=== PATIENT | male | born 1965 ===

== ENCOUNTER 2017-09-26 09:29 | Emergency (ER) | payer SELFPAY ==
[2017-09-26 09:39] VITALS: RESP 16
--- NOTE | 2017-09-26 10:24 | ED ---
General Adult HPI - General Chief complaint: Eye Problems Stated complaint: [employer] soap in eye Time Seen by Provider: 09/26/17 09:55 Source: patient, RN notes reviewed Mode of arrival: ambulatory Limitations: language barrier - History of Present Illness Initial comments: Patient is a 52-year-old male who presents emergency room today with a chief complaint of blurred vision from the right eye. Patient admits that 2 weeks ago while at work he had soap splashed him in the eye. He states he was seen in [place] where this happened placed on antibiotic drops ofloxacin. He states taking these drops is currently out but states he is experiencing blurred vision on the right eye. Patient states pain at times minimal. Patient denies any other complaints or symptoms. Patient denies any recent fever , chills, shortness of breath, chest pain, back pain, abdominal pain, nausea or vomiting, numbness or tingling, dysuria or hematuria, constipation or diarrhea, headaches, or any other complaints. - Related Data Home Medications Medication Instructions Recorded Confirmed No Known Home Medications [No 09/26/17 09/26/17 Known Home Medications] Allergies Allergy/AdvReac Type Severity Reaction Status Date / Time No Known Allergies Allergy Verified 09/26/17 09:47 Review of Systems ROS Statement: Those systems with pertinent positive or pertinent negative responses have been documented in the HPI. ROS Other: All systems not noted in ROS Statement are negative. Past Medical History Past Medical History: No Reported History History of Any Multi-Drug Resistant Organisms: None Reported Past Surgical History: Unable to Obtain Past Psychological History: No Psychological Hx Reported Smoking Status: Never smoker Past Alcohol Use History: Occasional Past Drug Use History: None Reported General Exam - General Exam Comments Initial Comments: General: The patient is awake and alert, in no distress, and does not appear acutely ill. Eye: Pupils are equal, round and reactive to light, extra-ocular movements are intact. No nystagmus. There is normal conjunctiva bilaterally. No signs of icterus. Pressure in the right eye was 14. No sign of foreign body with some inverted. Right eye was stained with forcing showing no abrasion or ulcer Ears, nose, mouth and throat: There are moist mucous membranes and no oral lesions. Neck: The neck is supple, there is no tenderness or JVD. Cardiovascular: There is a regular rate and rhythm. No murmur, rub or gallop is appreciated. Respiratory: Lungs are clear to auscultation, respirations are non-labored, breath sounds are equal. No wheezes, stridor, rales, or rhonchi. Musculoskeletal: Normal ROM, no tenderness. Strength 5/5. Sensation intact. Pulses equal bilaterally 2+. Neurological: A&O x 3. CN II-XII intact, There are no obvious motor or sensory deficits. Coordination appears grossly intact. Speech is normal. Skin: Skin is warm and dry and no rashes or lesions are noted. Psychiatric: Cooperative, appropriate mood & affect, normal judgment. Limitations: language barrier Course Vital Signs 09/26/17 09:34 Temperature 97.1 F L Pulse Rate 82 Respiratory 16 Rate Blood Pressure 148/82 O2 Sat by Pulse 94 L Oximetry Medical Decision Making - Medical Decision Making Case discussed in detail with attending physician Dr. Blanco. Patient reexamined at this time shows no signs of distress resting comfortably. Patient sure in the right eye is normal. No sign of infection. Patient does admit to blurred vision. Patient is advised follow-up with [facility]. Will be discharged home. Return if any symptoms increase worsen or for any other concerns Disposition Clinical Impression: Blurry vision, right eye Disposition: HOME SELF-CARE Condition: Good Instructions: Blurred Vision (ED) Additional Instructions: Please follow-up with the [facility] architect in the next 1-2 days. Please return to emergency room if any symptoms increase worsen or for new concerns. Referrals: None,Stated [Primary Care Provider] - 1-2 days Catarino Sorensen MD [STAFF PHYSICIAN] - 1-2 days Time of Disposition: 10:38
[2017-09-26 10:48] VITALS: BP 160/87; PULSE 67; TEMP 97.8
== END 2017-09-26 10:50 | disposition home or self-care (01) ==
LOC: EC 09:29
DX: H53.8 Other visual disturbances (principal)
CPT/HCPCS: 99283